=== PATIENT | female | born 1990 | race Caucasian/White ===

== ENCOUNTER 2017-01-31 03:28 | Emergency (ER) | payer BC ==
[2017-01-31 04:21] LABS: BASO % 0.3 % (0.1-1.2); EOS # 0.1 10_X3_uL (0.0-0.4); EOS % 0.9 % (0.7-5.8); GRAN % 75.1 % (34.0-71.1); HEMATOCRIT 38.8 % (34-45); LYMPH # 1.2 10_X3_uL (1.2-3.7); LYMPH % 18.5 % (19.3-51.7); MEAN CORPUSCULAR HEMOGLOBIN 28.9 pg (27.0-33.0); MEAN CORPUSCULAR HGB CONC 33.5 g/dL (32.0-36.0); MEAN CORPUSCULAR VOLUME 86.2 fL (79-95); MONO # 0.3 10_X3_uL (0.2-0.9); MONO % 5.2 % (4.7-12.5); PLATELET COUNT 294 x10_3/uL (182-369); RED CELL DISTRIBUTION WIDTH 14.1 % (11.7-14.4); WHITE BLOOD COUNT 6.6 x10_3/uL (4.0-10.0)
[2017-01-31 04:34] LABS: ALBUMIN 3.7 gm/dL (3.4-5.0); ALKALINE PHOSPHATASE 100 U/L (50-136); ALT/SGPT 20 U/L (3.5-33.9); AMYLASE 46 U/L (15.62-74.58); AST/SGOT 17 U/L (7.04-26.96); BLOOD UREA NITROGEN 12 mg/dL (7-18); CALCIUM 8.4 mg/dL (8.7-10.7); CARBON DIOXIDE 23 mmol/L (21-32); CREATINE KINASE 50 U/L (21-215); CREATININE 0.6 mg/dL (0.6-1.3); GLUCOSE,RANDOM 121 mg/dL (70-99); LIPASE 20 U/L (6.75-60.75); SODIUM 139 mmol/L (136-145); TOTAL PROTEIN 7.1 gm/dL (6.4-8.2)
[2017-01-31 04:40] LABS: POTASSIUM 4.4 mmol/L (3.5-5.1)
[2017-01-31 04:42] LABS: BILIRUBIN,TOTAL < 0.15 mg/dL (0.0-1.0)
== END 2017-01-31 05:03 | disposition home or self-care (01) ==
LOC: ER 03:28
PROVIDERS: Internal Medicine
DX: R07.89 Other chest pain (principal); I10 Essential (primary) hypertension; R06.02 Shortness of breath; R00.2 Palpitations; Z87.11 Personal history of peptic ulcer disease
CPT/HCPCS: 36415; 71020; 80053; 81025; 82150; 82550; 82553; 83690; 85025; 85379; 93005; 99285-25